=== PATIENT | female | born 1950 | race Caucasian/White ===

== ENCOUNTER → 2017-02-25 | Outpatient (CLI) | payer MEDICAID | END | disposition home or self-care (01) | LOC: PCVCCLINIC 14:45 | PROVIDERS: ATTEND Internal Medicine Cardiovascular Disease | DX: I42.9 Cardiomyopathy, unspecified (principal); E78.00 Pure hypercholesterolemia, unspecified; I10 Essential (primary) hypertension; I44.7 Left bundle-branch block, unspecified; E78.5 Hyperlipidemia, unspecified; R07.89 Other chest pain | CPT/HCPCS: 80061; 93005; G0463 ==

== ENCOUNTER → 2017-11-11 | Outpatient (CLI) | payer MEDICAID | END | disposition home or self-care (01) | LOC: PCVCCLINIC 09:59 | DX: I10 Essential (primary) hypertension (principal); I25.10 Atherosclerotic heart disease of native coronary artery without angina pectoris; E78.00 Pure hypercholesterolemia, unspecified; I42.9 Cardiomyopathy, unspecified; Z79.899 Other long term (current) drug therapy | CPT/HCPCS: 80061; 93005; G0463 ==

== ENCOUNTER → 2018-11-06 | Outpatient (CLI) | payer OTHER | END | disposition home or self-care (01) | LOC: PCVCCLINIC 14:55 | PROVIDERS: ATTEND Internal Medicine Cardiovascular Disease | DX: I25.10 Atherosclerotic heart disease of native coronary artery without angina pectoris (principal); I10 Essential (primary) hypertension; I44.7 Left bundle-branch block, unspecified; R06.02 Shortness of breath; E78.00 Pure hypercholesterolemia, unspecified; J45.909 Unspecified asthma, uncomplicated; R94.31 Abnormal electrocardiogram [ECG] [EKG]; Z88.2 Allergy status to sulfonamides; Z91.018 Allergy to other foods; Z79.899 Other long term (current) drug therapy | CPT/HCPCS: 36415; 80061; 93005; G0463 ==

== ENCOUNTER → 2018-12-11 | Outpatient (CLI) | payer OTHER ==
[~2018-12-11] MED LIST: REGADENOSON 0.4 MG/5 ML DISP.SYRIN. IV ONE
--- NOTE | 2018-12-11 10:31 | PCVCIMAG ---
APPROVED REPORT Study performed: 12/11/2018 07:56:13 EXAM: Comprehensive 2D, Doppler, and color-flow Echocardiogram Patient Location: Echo lab Room #: 2Status: routine BSA: 1.80 HR: 69 bpmBP: 124/78 mmHg Rhythm: LBBB Other Information Study Quality: Good Risk Factors: Cardiac Risk Factors: HTN, Hyperlipidemia, FHX of CAD Indications CAD Hypertension/HDD 2D Dimensions IVSd: 9.96 (7-11mm)LVOT Diam: 18.96 (18-24mm) LVDd: 46.10 mm PWd: 8.69 (7-11mm)Ascending Ao: 28.35 (22-36mm) LVDs: 27.16 (25-40mm) Left Atrium: 34.31 (27-40mm) Aortic Root: 22.66 mm LV Single Plane 4CH: 52.99 % LV Single Plane 2CH: 49.67 % Biplane EF: 52.5 % Volumes Left Atrial Volume (Systole) Single Plane 4CH: 28.04 mLSingle Plane 2CH: 31.80 mL Biplane LA Volume: 30.00 mLLA ESV Index: 17.00 mL/m2 Aortic Valve AoV Peak Chace.: 1.48 m/s AO Peak Gr.: 8.79 mmHgLVOT Max P.17 mmHg LVOT Max V: 0.89 m/s WILD Vmax: 1.69 cm2 Mitral Valve E/A Ratio: 0.8 MV Decel. Time: 105.41 ms MV E Max Chace.: 0.72 m/s MV A Chace.: 0.96 m/s TDI E/Lateral E': 12.00E/Medial E': 14.40 Medial E' Chace.: 0.05 m/s Lateral E' Chace.: 0.06 m/s Pulmonary Valve PV Peak Chace.: 0.77 m/sPV Peak Gr.: 2.40 mmHg Pulmonary Vein P Vein S: 0.53 m/sP Vein A: 0.29 m/s P Vein D: 0.32 m/sP Vein A Dur.: 93.4 msec P Vein S/D Ratio: 1.66 Tricuspid Valve TR Peak Chace.: 1.90 m/s TR Peak Gr.: 14.39 mmHg TV Vmax: 0.62 m/sPA Pressure: 21.00 mmHg Left Ventricle The left ventricle is normal size. Paradoxical septal motion consistent with a LBBB. There is normal left ventricular wall thickness. Left ventricular systolic function is normal. The left ventricular ejection fraction is within the normal range. LVEF is 50-55%. Grade I - abnormal relaxation pattern. Right Ventricle The right ventricle is normal size. The right ventricular systolic function is normal. Atria The left atrium size is normal. The right atrium size is normal. Aortic Valve Aortic valve is trileaflet. Aortic valve leaflets are sclerotic but open well. No aortic regurgitation is present. There is no aortic valvular stenosis. Mitral Valve The mitral valve is normal in structure. There is no mitral valve regurgitation noted. No evidence of mitral valve stenosis. Tricuspid Valve The tricuspid valve is normal in structure. Trace to mild tricuspid regurgitation with a PA pressure of 21 mmHg. No apparent pulmonary hypertension. Pulmonic Valve The pulmonary valve is normal in structure. There is no pulmonic valvular regurgitation. Great Vessels The aortic root is normal in size. The ascending aorta is normal in size. Aortic arch is normal in caliber. IVC is normal in size and collapses >50% with inspiration. Pericardium There is no pericardial effusion. There is no pleural effusion. <Conclusion> The left ventricle is normal size. Paradoxical septal motion consistent with a LBBB. LVEF is 50-55%. Grade I - abnormal relaxation pattern. The right ventricle is normal size. The left atrium size is normal. Aortic valve is trileaflet. Aortic valve leaflets are sclerotic but open well. There is no mitral valve regurgitation noted. Trace to mild tricuspid regurgitation with a PA pressure of 21 mmHg. No apparent pulmonary hypertension. The aortic root is normal in size. There is no pericardial effusion.
--- NOTE | 2018-12-11 16:11 | PCVCIMAG ---
APPROVED REPORT Imaging Protocol: Rest Tc-99m/Stress Tc-99m 1 day Study performed: 12/11/2018 08:54:05 Indication: CAD , Dyspnea, LBBB Patient Location: Out-Patient Stress Nurse: Fior Rose RN, Meliza Smiley RN [place] Tech:Nora Rodriguezashish [facility] Ht: 5 ft 3 in Wt: 179 lbs BSA: 1.84 m2 HR: 71 bpm BP: 153/76 mmHg BMI: 31.7 Rhythm: Sinus Rhythm, LBBB Medical History Medical History: HTN, Hyperlipidemia Medications: Atorvastatin, Zyrtec, Flovent, Lisinopril-HCTZ, Paxil Allergies: Sulfa, Flax seed Cardiac Risk Factors: Age Previous Cardiac Procedures: 2016 Cath - LAD 40% Pretest Chest Pain Characteristics: No chest pain Exercise History: Indeterminate Physical Disabilities: Legs Resting Data Rest SPECT myocardial perfusion imaging was performed in supine position 45 minutes following the intravenous injection of 10 mCi of Tc-99m Sestamibi. Time of rest injection: 0850 Date: 12/11/2018 Administration Route: IV Administration Site: Left Hand Pharmacologic Stress Pharmacologic stress test was performed by injecting Regadenoson 0.4 mg IV push over 10-15 seconds immediately followed by the intravenous injection of 34.9 mCi of Tc-99m Sestamibi. Time of stress injection: 1000 Date: 12/11/2018 Administration Route: IV Administration Site: Left Hand Gated Stress SPECT was performed 45 minutes after stress injection. The images were gated to evaluate regional wall motion and calculate left ventricular ejection fraction. Stress Test Details Stress Test: Pharmacologic stress was paired with low level exercise. HRMax Heart Rate (APMHR): 154 bpm Resting HR: 71 bpmTarget HR (85% APMHR): 130 bpm Max HR Achieved: 120 bpm % of APMHR: 77 Recovery HR: 81 bpm BP Resting BP: 153/76 mmHg Max BP: 142/80 mmHg Recovery BP: 150/72 mmHg ECG Resting ECG: Sinus Rhythm, LBBB Stress ECG: Sinus Tachycardia, LBBB Arrhythmia: None Recovery ECG: Sinus Rhythm, LBBB Clinical Reason for Termination: Completed protocol Stress Symptoms: Abdominal discomfort, Dyspnea, Lightheaded Exercise duration: 4 min 00 sec Symptoms resolved with caffeine. Stress ECG Conclusion non diagnostic LBBB Study Quality Study: Good Study Data Post stress, the left ventricular ejection was 55%.. SSS: 16 SRS: 17 SDS: 4 TID = 0.98. Perfusion No evidence of stress induced ischemia. 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 Wall Motion Paradoxical septal motion due to left bundle branch block. Nuclear Conclusion No evidence of stress induced ischemia. 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 Post stress, the left ventricular ejection was 55%. No change since prior study dated August 2016. Interpreted by: Adi Leon MD Electronically Approved: 12/11/2018 14:02:59 <Conclusion> non diagnostic LBBB
== END | disposition home or self-care (01) ==
LOC: PCVCIMAG 07:58
PROVIDERS: ATTEND Internal Medicine Cardiovascular Disease
DX: I35.8 Other nonrheumatic aortic valve disorders (principal); I25.10 Atherosclerotic heart disease of native coronary artery without angina pectoris; I10 Essential (primary) hypertension
CPT/HCPCS: 78452; 93017; 93306; A9500; J2785